=== PATIENT | male | born 1940 | race Two or more races ===

== ENCOUNTER 2018-01-20 14:45 | Inpatient (IN) | payer OTHER ==
[~2018-01-20] VITALS: Ht 157.5 cm; Wt 63.5 kg
[2018-01-21] MEDS ORDERED: GABAPENTIN300 MG PO (08:35)
[2018-01-21] MEDS ORDERED: RANITIDINE HCL150 M1 PO (08:35)
[2018-01-21] MEDS ORDERED: AVAPRO300 MG PO (08:35)
[2018-01-21] MEDS ORDERED: GABAPENTIN100 MG PO (08:35)
== END 2018-01-25 12:27 | disposition home or self-care (01) | DRG 337 ==
LOC: SURH 01-23 06:02 → O/R 01-23 06:02 → SURH 01-23 11:02
PROVIDERS: Surgery
PROC: 0DN84ZZ Release Small Intestine, Percutaneous Endoscopic Approach (ICD-10-PCS; principal; 2018-01-23 13:15)
DX: K66.0 Peritoneal adhesions (postprocedural) (postinfection) (principal); I11.9 Hypertensive heart disease without heart failure

== ENCOUNTER 2020-06-29 08:12 | Outpatient (CLI) | payer OTHER ==
[~2020-06-29 08:12] MED LIST: AVAPRO300 MG PO; GABAPENTIN100 MG PO; GABAPENTIN300 MG PO; RANITIDINE HCL150 M1 PO
== END 2020-06-29 08:20 | disposition home or self-care (01) ==
LOC: RAD 08:12
PROVIDERS: ATTEND Otolaryngology
DX: K22.0 Achalasia of cardia (principal); E04.1 Nontoxic single thyroid nodule; R13.13 Dysphagia, pharyngeal phase; I85.00 Esophageal varices without bleeding